=== PATIENT | female | born 1990 | race Caucasian/White ===

== ENCOUNTER 2019-09-28 00:10 | Inpatient (IN) | payer OTHER, SELFPAY ==
[2019-09-28] VITALS (101 sets, daily range): BP systolic 85–140; BP diastolic 37–91; PULSE 70–171; RESP 18–20; TEMP 36.8–37.4; O2SAT 96–100; BMI 41.9
--- NOTE | 2019-09-28 00:10 | LDADM ---
This patient, Sonia Dao, was admitted to Labor/Delivery/Recovery 106 on 09/28/19 at 00:10. Plans for labor, pain management and were discussed with patient. Patient/family oriented to hospital policies and general routines including ID bracelet, bed and alarms, visiting hours, pain management, procedures, bathroom and other care routines, personal items, smoking policy, room service/diet and guest tray routines, infant security routines, and visiting hours. Patient/Family are encouraged to report perceived risks to care and to ask questions if they do not understand what they are told or what they should do. See OBIX for further documentation.
[2019-09-28 01:35] LABS: Basophils Percent Auto 0.3 % (0.2-1.2); Eosinophils Absolute Auto 0.1 K/mm3 (0-0.3); Eosinophils Percent Auto 0.8 % (0-4.4); Hematocrit 34.5 % (37.0-47.0); Hemoglobin 11.7 g/dL (12.0-15.0); Immature Granulocyte Absolute 0.15 K/mm3 (0.00-0.031); Immature Granulocyte Percent A 1.4 % (0-0.5); Lymphocytes Percent Auto 19.7 % (18.3-44.2); Mean Corpuscular HGB Conc 33.9 g/dl (32-36); Mean Corpuscular Volume 91.5 fl (80-100); Mean Platelet Volume 10.7 fl (7.4-10.4); Monocytes Absolute Auto 0.7 K/mm3 (0.1-0.6); Monocytes Percent Auto 6.8 % (2.6-8.5); Neutrophils Absolute Auto 7.6 K/mm3 (1.3-6.7); Platelet Count Result 290 k/mm3 (150-375); Red Blood Count 3.77 M/mm3 (4.2-5.4); Red Cell Distribution Width 13.3 % (11.5-14.5); White Blood Count 10.6 K/mm3 (4.5-10.0)
[2019-09-28] MEDS: OXYTOCIN 30 UNITS/NS 500 ML 30 UNITS/500 ML BAG 6 UNITS IV CONT (05:47)
[2019-09-28] MEDS: LACTATED RINGERS 1,000 ML 125 ML IV CONT ×5 (05:47→17:54)
[2019-09-28] MEDS: ONDANSETRON INJ 4 MG/2 ML VIAL IV PUSH ×2 (06:15→20:15)
--- NOTE | 2019-09-28 07:14 | P.PNAN_ITS ---
Anes - Eval Pre Procedure Procedure: labor epidural Date/Time: 09/28/19 07:14 Surgeon: debra Preop Diagnosis: pain during labor Pre Op Diagnosis: SROM Patient Data Age: 28 Gender: F Height: 1.57 m Weight: 104 kg Last Vital Signs Temp 37.0 C 09/28/19 05:46 Pulse 91 09/28/19 07:13 Resp 18 09/28/19 05:46 BP 100/61 09/28/19 07:13 Pulse Ox 99 09/28/19 07:13 Allergies Allergy/AdvReac Type Severity Reaction Status Date / Time meperidine [From Demerol] Allergy Hives Verified 09/01/19 13:35 Home Medications Medication Instructions Recorded Confirmed Type PNV cmb#95-ferrous fumarate-FA 1 tablet PO DAILY 09/01/19 09/01/19 History [] Laboratory Tests 09/28/19 09/28/19 09/28/19 00:56 00:56 00:56 WBC 10.6 K/mm3 H K/mm3 (4.5-10.0) RBC 3.77 M/mm3 L M/mm3 (4.2-5.4) Hgb 11.7 g/dL L g/dL (12.0-15.0) Hct 34.5 % L % (37.0-47.0) MCV 91.5 fl fl (80-100) MCH 31.0 pg pg (26-34) MCHC 33.9 g/dl g/dl (32-36) RDW 13.3 % % (11.5-14.5) Plt Count 290 k/mm3 k/mm3 (150-375) MPV 10.7 fl H fl (7.4-10.4) Immature Gran % (Auto) 1.4 % H % (0-0.5) Neut % (Auto) 71.0 % % (45.5-73.1) Lymph % (Auto) 19.7 % % (18.3-44.2) [place] % (Auto) 6.8 % % (2.6-8.5) Eos % (Auto) 0.8 % % (0-4.4) Baso % (Auto) 0.3 % % (0.2-1.2) Lymph # (Auto) 2.10 K/mm3 K/mm3 (0.9-3.2) [place] # (Auto) 0.7 K/mm3 H K/mm3 (0.1-0.6) Eos # (Auto) 0.1 K/mm3 K/mm3 (0-0.3) Baso # (Auto) 0.0 K/mm3 K/mm3 (0.0-0.1) Abs Immat Gran (auto) 0.15 K/mm3 H K/mm3 (0.00-0.031) Absolute Neuts (auto) 7.6 K/mm3 H K/mm3 (1.3-6.7) Absolute Nucleated RBC 0.0 K/mm3 K/mm3 (0.0-0.012) Nucleated RBC % 0.0 % % (0.0-0.2) RPR Pending Blood Type B Positive Antibody Screen Negative Patient hx anesthesia problems: none Family hx anesthesia problems: none PMFSH Social History Social History Smoking status: Never smoker Substance use: never Spiritual care concerns: No Exam Day of Procedure 09/28/19 07:14
[2019-09-28 07:41] LABS: Rapid Plasma Reagin Non-Reactive (NonReactive)
--- NOTE | 2019-09-28 08:42 | WPDOBADMIT ---
Obstetrics - Admit Note Admission Note: record reviewed. Additions to the history and/or subsequent changes in the physical findings follow. 28 y/o G1 at 39 3/7 weeks here after a gush of fluid at 2337 last evening. SROM confirmed. GBS neg. Now comfortable with epidural and augmenting labor with oxytocin. Followed by MFM for dilated left renal pelvis. AVSS NST reactive TOCO: contractions every 3-6 min ABD soft, nontender, gravid, vertex EXT nontender Cervix 3/50/-2. [address]PC [address]. A: IUP at term with SROM. P: Oxytocin for augmentation. Anticipate .
--- NOTE | 2019-09-28 12:44 | PM.OBPNLAB ---
Pain Control Date/time seen: 09/28/19 12:44 Comments: Comfortable with epidural. Pelvic Exam Dilation (cm): 5 Effacement (%): 80 station: -2 Contractions Contraction pattern: Irregular Status status: Category l Assessment and Plan Comments: Continue augmentation.
[2019-09-28] MEDS: SODIUM CHLORIDE 0.9% IV 300 ML 600 ML I-UTERINE (14:56)
[2019-09-28] MEDS: AMPICILLIN 2 GM/NS 100 ML 2 GM/100 ML BAG IVPB (17:53)
--- NOTE | 2019-09-28 19:31 | PM.OBPNLAB ---
Pain Control Date/time seen: 09/28/19 19:31 Comments: Comfortable. Pelvic Exam Dilation (cm): 8 Effacement (%): 80 station: 0 Contractions Contraction pattern: Irregular Status status: Category l Assessment and Plan Comments: Continue labor.
[2019-09-28] MEDS: AMPICILLIN 1 GM/NS 50 ML 1 GM/50 ML BAG IVPB (21:33)
[2019-09-29] VITALS (79 sets, daily range): BP systolic 91–150; BP diastolic 45–129; PULSE 66–242; RESP 12–18; TEMP 36.4–37.2; O2SAT 94–100
--- NOTE | 2019-09-29 00:14 | PM.OBPNLAB ---
Pain Control Date/time seen: 09/29/19 00:14 Comments: Feeling more pressure. Pelvic Exam Dilation (cm): 8 Effacement (%): 80 station: 0 Contractions Contraction pattern: Irregular Status status: Category l Assessment and Plan Comments: A: Arrest of dilation. P: Offered primary LTCS. Reviewed risks, benefits and alternatives in detail. She understands and elects to proceed.
--- NOTE | 2019-09-29 00:15 | PM.IMHP ---
H&P: HPI History of Present Illness Chief complaint: SROM Narrative: 28 y/o G1 at 39 4/7 weeks here with SROM. Have augmented labor, but have been unable to achieve complete dilation. She has been afebrile and her epidural has worked well. GBS neg. complicated by left-sided pyelectasis. Review of Systems Review of Systems: All systems reviewed & are unremarkable except as noted in HPI and below PMFSH Surgical History Surgical History History of augmentation mammoplasty History of tonsillectomy Family History Family History Grandparent Diabetes mellitus Social History Social History Smoking status: Never smoker Substance use: never Spiritual care concerns: No Meds Home Medications and Allergies Home Medications Medication Instructions Recorded Confirmed Type PNV cmb#95-ferrous fumarate-FA 1 tablet PO DAILY 09/01/19 09/01/19 History [] Allergies Allergy/AdvReac Type Severity Reaction Status Date / Time meperidine [From Demerol] Allergy Hives Verified 09/01/19 13:35 Vital Signs Vital Signs - 24 hr 09/28/19 00:20 09/28/19 00:30 09/28/19 00:45 Temperature 37.2 C Pulse Rate 84 84 Respiratory Rate 20 Blood Pressure 118/79 123/74 Pulse Oximetry 09/28/19 01:15 09/28/19 02:40 09/28/19 02:41 Temperature 37.2 C 36.9 C Pulse Rate 92 Respiratory Rate 20 20 Blood Pressure 119/72 Pulse Oximetry 09/28/19 04:31 09/28/19 05:46 09/28/19 06:00 Temperature 37.0 C 37.0 C Pulse Rate 70 74 Respiratory Rate 18 18 Blood Pressure 140/77 125/77 Pulse Oximetry 09/28/19 06:30 09/28/19 07:00 09/28/19 07:03 Temperature Pulse Rate 72 84 Respiratory Rate Blood Pressure 107/56 L 125/67 Pulse Oximetry 97 09/28/19 07:04 09/28/19 07:07 09/28/19 07:08 Temperature Pulse Rate 90 85 Respiratory Rate Blood Pressure 112/73 121/66 Pulse Oximetry 100 09/28/19 07:12 09/28/19 07:13 09/28/19 07:18 Temperature Pulse Rate 82 91 Respiratory Rate Blood Pressure 114/72 100/61 Pulse Oximetry 99 96 09/28/19 07:20 09/28/19 07:21 09/28/19 07:23 Temperature Pulse Rate 84 82 Respiratory Rate Blood Pressure 85/47 L 92/43 L Pulse Oximetry 98 09/28/19 07:24 09/28/19 07:27 09/28/19 07:28 Temperature Pulse Rate 85 82 Respiratory Rate Blood Pressure 88/47 L 94/43 L Pulse Oximetry 98 09/28/19 07:30 09/28/19 07:33 09/28/19 07:36 Temperature Pulse Rate 83 80 81 Respiratory Rate Blood Pressure 99/44 L 94/53 L 88/50 L Pulse Oximetry 98 09/28/19 07:38 09/28/19 07:39 09/28/19 07:42 Temperature Pulse Rate 80 79 Respiratory Rate Blood Pressure 96/54 L 99/54 L Pulse Oximetry 97 09/28/19 07:43 09/28/19 07:45 09/28/19 07:48 Temperature Pulse Rate 79 79 Respiratory Rate Blood Pressure 99/54 L 99/54 L Pulse Oximetry 97 97 09/28/19 07:51 09/28/19 07:53 09/28/19 07:58 Temperature Pulse Rate 77 Respiratory Rate Blood Pressure 100/58 L Pulse Oximetry 98 97 09/28/19 08:00 09/28/19 08:15 09/28/19 08:30 Temperature 36.8 C Pulse Rate 84 84 80 Respiratory Rate Blood Pressure 109/65 100/66 104/68 Pulse Oximetry 09/28/19 08:45 09/28/19 09:00 09/28/19 09:15 Temperature Pulse Rate 79 80 70 Respiratory Rate Blood Pressure 105/67 98/60 L 98/47 L Pulse Oximetry 09/28/19 09:30 09/28/19 09:45 09/28/19 10:00 Temperature Pulse Rate 72 72 71 Respiratory Rate Blood Pressure 95/44 L 92/52 L 95/49 L Pulse Oximetry 09/28/19 10:15 09/28/19 10:30 06/15/20 10:45 Temperature Pulse Rate 79 80 83 Respiratory Rate Blood Pressure 106/66 108/66 96/62 L Pulse Oximetry 09/28/19 11:00 09/28/19 11:15 09/28/19 11:30 Temperature Pulse Rate
[2019-09-29] MEDS: ceFAZolin 2 GM/D5W 50 ML 2 GM/50 ML BAG IVPB (00:24)
--- NOTE | 2019-09-29 01:18 | PM.OBPRVD ---
OB - Delivery Note Procedure Delivery date: 09/29/19 Procedure: Procedures Operation Date: 09/29/19 00:15 <No data on this case meets the specified criteria> Primary low transverse delivery Estimated blood loss (mL): 710 Anesthesia type: Epidural Disposition: PACU Complications: None Narrative: The patient was taken to the operating room where she was prepared and draped in the usual sterile fashion in dorsal supine position with a leftward tilt. She received cefazolin preoperatively. Epidural anesthesia was found to be adequate. A Pfannenstiel skin incision was made and carried through to the underlying layer of the fascia. The fascia was incised in the midline and the incision was extended laterally. The fascia was dissected free of the underlying rectus muscles. The rectus muscles were in the midline. The peritoneum was identified, tented up and entered sharply. The peritoneal incision was extended superiorly and inferiorly with good visualization of the bladder. The bladder blade was placed. The vesicouterine peritoneum was identified, tented up and entered sharply. The incision was extended laterally and the bladder flap was developed. The bladder blade was replaced. The uterus was then incised sharply in a transverse fashion along the lower uterine segment. The incision was extended laterally. The infant was noted to be in occiput posterior position. The 's head was elevated out of the pelvis. When the periodontal assistant applied fundal pressure, the infant rotated obliquely. The hips were the easiest to grasp, so the infant was delivered from breech presentation to the level of the scapulae. The arms were swept across the chest and delivered. The head was gently flexed and easily delivered. A loose nuchal cord was reduced. The nose and mouth were bulb suctioned. After a delay, the cord was clamped and cut. The infant was handed off the field. Cord blood was collected. The placenta was removed manually and was passed off the field. The uterus was exteriorized and cleared of all clots and debris. The uterine incision was reapproximated using 0 Monocryl in a running, locked fashion. A second imbricating layer of the same suture was placed. Excellent hemostasis resulted as did excellent reapproximation of the normal anatomy. The uterus was returned the abdomen. The pelvis was irrigated copiously with warmed normal saline. Rigorous hemostasis was assured. The fascial layer was reapproximated using 0 Vicryl in a running fashion. The skin was closed with a running, subcuticular stitch of 4 0 Vicryl. Dermaflex was applied externally. Sponge, lap, needle and instrument counts were correct. The patient was taken to the recovery room in stable condition. The infant went to the nursery in stable condition. I was present and scrubbed the entire procedure. [place] Baby Date of : 09/29/19 Time of : 00:42 Weeks of gestation at delivery: 39 gender: Male Weight (pounds): 8 presentation: vertex Placenta delivery description: Manual Removal and Normal Configuration cord vessel description: 3 Vessels score one minute: 8 score five minutes: 9
--- NOTE | 2019-09-29 01:24 | P.DS_ITS ---
DS: Admitting Diagnosis Admitting Diagnosis Admitting Diagnosis: IUP at 39 4/7 weeks SROM Arrest of dilation in labor DS: Discharge Diagnosis Discharge Diagnosis (1) Arrest of dilation, delivered, current hospitalization: Code(s): O62.1 - Secondary uterine inertia Status: Acute (2) SROM (spontaneous rupture of membranes): Status: Acute OB - DS: Summary OB Procedures : None OB Procedures Intrapartum: OB Procedures: : None Peripartum Data Procedures: Procedures Operation Date: 09/29/19 00:15 <No data on this case meets the specified criteria> Primary low transverse delivery DS: Data Data Completed and Pending Labs on day of discharge: Labs from last 24 hours 09/28/19 09/28/19 09/28/19 00:56 00:56 00:56 WBC 10.6 H RBC 3.77 L Hgb 11.7 L Hct 34.5 L MCV 91.5 MCH 31.0 MCHC 33.9 RDW 13.3 Plt Count 290 MPV 10.7 H Immature Gran % (Auto) 1.4 H Neut % (Auto) 71.0 Lymph % (Auto) 19.7 [place] % (Auto) 6.8 Eos % (Auto) 0.8 Baso % (Auto) 0.3 Lymph # (Auto) 2.10 [place] # (Auto) 0.7 H Eos # (Auto) 0.1 Baso # (Auto) 0.0 Abs Immat Gran (auto) 0.15 H Absolute Neuts (auto) 7.6 H Absolute Nucleated RBC 0.0 Nucleated RBC % 0.0 RPR Non-reactive Blood Type B Positive Antibody Screen Negative Discharge Plan Discharge Attending physician on discharge: Serge Abdi Discharging Clinician: Serge Abdi Patient Disposition: Home, Self-Care Activity: may shower, may drive after 2 weeks and pelvic rest Diet: regular Wound Care Instructions: incision open to air Discharge Instructions: Call or return if temperature above 100.4? F, increased abdominal pain, increased vaginal bleeding or any new problems. Stand Alone Forms: General Discharge Information Follow-up/Referrals: Serge Abdi MD [Physician] - (4 weeks) Discharge Medications: New hydrocodone-acetaminophen [[place]] 5-325 mg tablet 1 - 2 tablet PO Q6H PRN (Reason: pain) Qty: 30 RF: 0 ibuprofen 600 mg tablet 600 mg PO Q6H PRN (Reason: cramps) Qty: 30 RF: 0 No Action PNV cmb#95-ferrous fumarate-FA [] 28 mg iron- 800 mcg Tablet 1 tablet PO DAILY RF: 0 Date of admission: 09/28/19 00:10 Primary Care Provider: PHYSICIAN,HEALTH ASSESSMENT AND TREATMENT TEACHER Admitting Provider: Serge Abdi Attending physician on admission: Serge Abdi
[2019-09-29] MEDS: LORATADINE 10 MG TABLET PO (02:14)
[2019-09-29] MEDS: OXYTOCIN 30 UNITS/NS 500 ML 30 UNITS/500 ML BAG 125 UNITS IV CONT (02:27)
--- NOTE | 2019-09-29 04:14 | OBPPTRN ---
Patient transferred to post room #280 on stretcher. Support person present. Oriented to unit, room, information board, rooming in, admission packet and security measures. Patient verbalizes understanding.
[2019-09-29] MEDS: KCL 20 MEQ/D5/0.45% SOD CHL 1,000 ML 125 ML IV CONT (07:21)
[2019-09-29] MEDS: LANOLIN (LANSINOH) 7.5 GM CREAM 1 APPLIC TOPICAL (07:21)
[2019-09-29] MEDS: MULTIVIT/MIN/PREN/FOL AC/IRON TABLET 1 TAB PO (07:21)
[2019-09-29] MEDS: SIMETHICONE 80 MG TAB.CHEW PO (07:21)
[2019-09-29] MEDS: KETOROLAC 30 MG/ML VIAL (*BKC) IV PUSH ×2 (07:22→16:12)
--- NOTE | 2019-09-29 11:15 | PC.NURSE ---
Consulted with patient, mother reports infant has been sleepy. will make eager attempts to latch with a few flutter sucks with long pausing and fall asleep. Mother stats she has been given a nipple shield for use, she has not used since can latch without. Reviewed feeding cues, frequencies, duration of feedings, feeding elimination flow sheet, and signs of adequate intake. Demonstrated stimulation techniques to wake for feeding. Assisted with to breast. Reviewed positioning/alignment in cross cradle, holding breast in U hold and guided asymmetrical latch on. Discussed rational for each. was able to latch correctly. Infant eagerly latched with a short burst of suckling followed with long pausing. is awake and licking with attempts to organize and suck. Several attempts made in 10-15 minutes, repeating above. Reviewed signs of a correct latch, effective nursing and suck swallow ratio. Infant was able to maintain latch with no suckling and no discomfort to mother. Nipple care reviewed. Parents report this has been infant's feeding pattern since . Mother states he may have had a few minutes of suckling at some feedings. FOB is concerned with feeding status. Decision to supplement 10-15 mls until is more awake and feeding consistently. Suggested mother initiate pumping next feeding if infant not more awake and effectively feeding.
--- NOTE | 2019-09-29 14:15 | PC.NURSE ---
Mother called out for assist with feeding. Demonstrated stimulation techniques to wake for feeding. Assisted with to breast. Reviewed positioning/alignment, holding breast and asymmetrical latch on. Infant was sleepy and made not effort to latch. Suggested skin to skin for 30 min., call out if infant rooting before.
--- NOTE | 2019-09-29 14:40 | PC.NURSE ---
Assisted with infant to breast. Reviewed positioning/alignment in cross cradle, holding breast and asymmetrical latch on. Infant was able to latch correctly. Infant nursed would make eager attempts to latch with a few weak suckles long pausing and would fall asleep. Mother repeated to latch several times within the 10 minutes of observation. Mother will supplement and initiate pumping.
--- NOTE | 2019-09-29 15:15 | PC.NURSE ---
Breast pump provided due to ineffective feeding. Instructions given on breast pump care and usage, pumping schedule, nipple care, and collection and storage of breast milk. Encouraged [id number], breast massage and manual expression to stimulate supply. Assessed patient for correct flange size, placement and draw. Patient verbalizes and demonstrates understanding of instructions.
[2019-09-29] MEDS: ACETAMINOPHEN 325 MG TABLET 650 MG PO (20:41)
[2019-09-29] MEDS: IBUPROFEN 600 MG TABLET PO (23:23)
[2019-09-30 00:40] VITALS: BP 113/65; PULSE 80; RESP 16; TEMP 36.6
--- NOTE | 2019-09-30 05:26 | PM.OBPNVD ---
OB - PN: Subj Subjective Date/time seen: 09/30/19 05:26 Narrative: Pain OK. Tolerating diet. Desires circumcision for son. OB - PN: Obj Data Labs CBC & Chem 7: 09/28/19 00:56 OB - PN A/P Plan Comments: A: POD#1, doing well. CBC still pending this morning, P: Routine care. Reviewed circumcision. Exam Narrative: Exam Narrative: AVSS I/O OK ABD soft, nontender, fundus firm. Incision c/d/i. EXT nontender
[2019-09-30 05:34] LABS: Basophils Absolute Auto 0.1 K/mm3 (0.0-0.1); Basophils Percent Auto 0.3 % (0.2-1.2); Eosinophils Absolute Auto 0.1 K/mm3 (0-0.3); Eosinophils Percent Auto 0.8 % (0-4.4); Hemoglobin 9.3 g/dL (12.0-15.0); Immature Granulocyte Absolute 0.24 K/mm3 (0.00-0.031); Immature Granulocyte Percent A 1.5 % (0-0.5); Lymphocytes Absolute Auto 1.57 K/mm3 (0.9-3.2); Lymphocytes Percent Auto 10.1 % (18.3-44.2); Mean Corpuscular HGB Conc 33.2 g/dl (32-36); Mean Corpuscular Hemoglobin 31.5 pg (26-34); Mean Corpuscular Volume 94.9 fl (80-100); Mean Platelet Volume 10.5 fl (7.4-10.4); Monocytes Absolute Auto 0.7 K/mm3 (0.1-0.6); Monocytes Percent Auto 4.2 % (2.6-8.5); Neutrophils Absolute Auto 12.9 K/mm3 (1.3-6.7); Neutrophils Percent Auto 83.1 % (45.5-73.1); Platelet Count Result 183 k/mm3 (150-375); Red Blood Count 2.95 M/mm3 (4.2-5.4); Red Cell Distribution Width 13.8 % (11.5-14.5); White Blood Count 15.6 K/mm3 (4.5-10.0)
[2019-09-30] MEDS: POLYSACCHARIDE IRON COMPLEX 150 MG CAPSULE PO ×2 (07:16→16:23)
[2019-09-30] MEDS: DOCUSATE SODIUM 100 MG CAPSULE PO ×2 (07:16→16:23)
[2019-09-30] MEDS: MULTIVIT/MIN/PREN/FOL AC/IRON TABLET 1 TAB PO (07:16)
--- NOTE | 2019-09-30 09:09 | WPDANLDPN2 ---
Anes-Prog Note L&D Date/Time: 09/30/19 09:09 Comfortable throughout: section Neuraxial method: epidural Epidural/Spinal procedure site: clean & non-tender Neuro status: Neuro function grossly intact. Cardiovascular status: normal Respiratory status: normal Airway patency: baseline Mental status: baseline Post-Op hydration status: normal Vital Signs: Last Vital Signs Temp 36.6 C 09/30/19 00:40 Pulse 80 09/30/19 00:40 Resp 16 09/30/19 00:40 BP 113/65 09/30/19 00:40 Pulse Ox 97 09/29/19 16:06 I/O: Intake & Output 09/29/19 09/30/19 09/30/19 23:59 07:59 15:59 Output Total 200 Balance -200 Post-procedural complaints: none Patient feedback: Patient satisfied with anesthetic care.
--- NOTE | 2019-09-30 09:09 | WPDANLDNPN2 ---
Anes-Prog Note L&D-Neuraxial Date/Time: 09/30/19 09:09 Neuraxial medications: epidural PF morphine Opiod-related complaints: none Patient feedback: Patient satisfied with post-operative pain management.
[2019-09-30 09:19] VITALS: BP 110/55; PULSE 65; RESP 18; TEMP 36.6; O2SAT 94
--- NOTE | 2019-09-30 10:15 | PC.NURSE ---
Mother called out for assist with feeding. Mother states is more awake and and showing feeding cues. Assisted with infant to breast. Reviewed positioning/alignment in cross cradle, holding breast in U hold and guided asymmetrical latch on. was able to latch correctly. nursed eagerly with steady draws and occasional swallowing for short bursts followed with long pausing. Mother was able to stimulate infant to continued nursing. Reviewed signs of a correct latch, effective nursing and suck swallow ratio. was able to maintain latch without discomfort to mother. Nipple care reviewed. Mother will continue to supplement after each feeding/attempt and pump. Instructed mother to call out for RN assistance if she is unable to latch for feeding or she has discomfort with nursing. Instructed feeding should be initiated three hours from start of last feeding or if feeding cues are noted before. Mother voiced understanding of information shared.
[2019-09-30] MEDS: IBUPROFEN 600 MG TABLET PO ×2 (10:29→16:23)
--- NOTE | 2019-09-30 13:25 | PC.NURSE ---
Mother called out for assist with feeding. Mother up in chair, attempting independently using cross cradle, holding breast. making eater attempts. Reviewed positioning/alignment, not pulling breast to moving infant in front of breast. Several attempts before infant was able to latch correctly. Mother independently latched . nursed eagerly, with steady draws and occasional swallowing noted. FOB stimulating to keep awake and nursing. Reviewed signs of a correct latch, effective nursing and suck swallow ratio. Infant was able to maintain latch without discomfort to mother. Nipple care reviewed. Instructed mother to call out for RN assistance if she is unable to latch infant for feeding or she has discomfort with nursing. Instructed feeding should be initiated three hours from start of last feeding or if feeding cues are noted before. Mother voiced understanding of information shared.
[2019-09-30 19:25] VITALS: BP 111/59; PULSE 73; RESP 18; TEMP 36.6; O2SAT 97
[2019-10-01] MEDS: MULTIVIT/MIN/PREN/FOL AC/IRON TABLET 1 TAB PO (07:18)
[2019-10-01] MEDS: DOCUSATE SODIUM 100 MG CAPSULE PO (07:18)
[2019-10-01] MEDS: POLYSACCHARIDE IRON COMPLEX 150 MG CAPSULE PO (07:18)
[2019-10-01] MEDS: IBUPROFEN 600 MG TABLET PO ×2 (07:19)
[2019-10-01 09:11] VITALS: BP 119/72; PULSE 77; RESP 18; TEMP 36.6; O2SAT 97
--- NOTE | 2019-10-01 10:00 | PC.NURSE ---
Mother is able to independently latch with appropriate positioning/alignment. She denies any nipple discomfort, is feeding as required and waking infant to feed if needed. Infant has had several effective feedings (followed with supplementation) in the past 24 hours, and is currently meeting outcomes for weight, output, jaundice and feeding frequencies. is more awake and having several minutes of effective feeding each feeding. Parents will continue to supplement until mother feels is effectively feeding and satisfied with , before supplement is discontinued. Discussed signs when infant is ready to step back on supplement. Mother states she feels confident to continue current feeding plan at home. Reviewed transition to breast milk, signs of adequate intake, and engorgement/relief. Instructed to call ICP if intake/output less than required. Reviewed regular medications mother is taking. Information provided per Frida. Reviewed community resources on the [facility] website and in the Mom/Baby guide. Information on outpatient services provided. Mother has no further questions at this time.
--- NOTE | 2019-10-01 13:07 | PM.OBPNVD ---
OB - PN: Subj Subjective Date/time seen: 10/01/19 13:07 Narrative: Pain OK. Tolerating diet. Would like to go home. OB - PN: Obj Data Labs CBC & Chem 7: 09/30/19 05:01 OB - PN A/P Plan Comments: A: POD#2, doing well. P: Home to f/u 4 weeks. Exam Narrative: Exam Narrative: AVSS ABD soft, nontender, fundus firm. Incision c/d/i. EXT nontender
[2019-10-02 10:32] VITALS: BP 112/63; PULSE 76; RESP 20; TEMP 37.5; O2SAT 98
== END 2019-10-01 14:15 | disposition home or self-care (01) | DRG 788 ==
LOC: ANHLDR 09-29 01:26 → ANHOB2 09-29 04:15
PROVIDERS: Admitting Provider Obstetrics & Gynecology; Visit Provider Obstetrics & Gynecology
PROC: 10D00Z1 Extraction of Products of Conception, Low, Open Approach (ICD-10-PCS; CPT 59514; principal; 2019-09-29 00:15)
DX: O42.92 Full-term premature rupture of membranes, unspecified as to length of time between rupture and onset of labor (principal); Z37.0 Single live birth; Z3A.39 39 weeks gestation of pregnancy; O35.8XX0 Maternal care for other (suspected) fetal abnormality and damage, not applicable or unspecified; O62.1 Secondary uterine inertia; O36.8330 Maternal care for abnormalities of the fetal heart rate or rhythm, third trimester, not applicable or unspecified
CPT/HCPCS: 36415; 85025; 86592; 86850; 86900; 86901; A9270; J0131; J0290; J0690; J1885; J2274; J2370; J2405; J2590; J2795; J3010; J3480; J7030; J7120